=== PATIENT | male | born 1955 | race Hispanic/Latino ===

== ENCOUNTER → 2017-04-30 | Day surgery (SDC) | payer OTHER ==
[~2017-04-30] MED LIST: AMLODIPINE BESYL5 MG PO; HYDRALAZINE HCL25 MG PO; LABETALOL HCL100 MG PO; PROPOFOL IV EMULSION 10 MG/ML 50 ML VIAL ONE
== END | disposition home or self-care (01) ==
LOC: OR 09:32
PROVIDERS: ATTEND Internal Medicine Gastroenterology
DX: D64.9 Anemia, unspecified (principal); K29.50 Unspecified chronic gastritis without bleeding; K29.80 Duodenitis without bleeding; K31.89 Other diseases of stomach and duodenum; K44.9 Diaphragmatic hernia without obstruction or gangrene; I10 Essential (primary) hypertension; E78.5 Hyperlipidemia, unspecified
CPT/HCPCS: 43239

== ENCOUNTER → 2017-05-07 | Day surgery (SDC) | payer OTHER ==
[~2017-05-07] MED LIST changes: +FENTANYL CITRATE/PF 100MCG/2 ML INJ ONE; +MIDAZOLAM HCL 2 MG/2 ML VIAL ONE
== END | disposition home or self-care (01) ==
LOC: OR 08:06
PROVIDERS: ATTEND Internal Medicine Gastroenterology
DX: Z12.11 Encounter for screening for malignant neoplasm of colon (principal); D12.3 Benign neoplasm of transverse colon; K57.30 Diverticulosis of large intestine without perforation or abscess without bleeding; K64.8 Other hemorrhoids; I10 Essential (primary) hypertension; D64.9 Anemia, unspecified; Z01.810 Encounter for preprocedural cardiovascular examination
CPT/HCPCS: 45380; 45384; 93005; J2250